=== PATIENT | male | born 1995 | race Caucasian/White ===

== ENCOUNTER 2020-09-05 12:24 | Emergency (ER) | payer SELFPAY ==
[~2020-09-05] VITALS: Ht 172.7 cm; Wt 88.5 kg
[2020-09-05 12:57] VITALS: BP 151/89
--- NOTE | 2020-09-05 13:00 | NUR ---
TENT OF1
--- NOTE | 2020-09-05 13:07 | NUR ---
25/M BIB SELF C/O COUGH X TODAY. [employer]T HAD TESTED +. MED HX: DENIES
--- NOTE | 2020-09-05 14:00 | NUR ---
COVID SWAB DONE. SENT TO LAB.
[2020-09-05 14:24] VITALS: BP 151/89
== END 2020-09-05 14:24 | disposition home or self-care (01) ==
LOC: MED 12:24
DX: R05 Cough (principal); Z20.828 Contact with and (suspected) exposure to other viral communicable diseases
CPT/HCPCS: 99283; U0003